=== PATIENT | female | born 1955 | race Asian ===

== ENCOUNTER → 2017-06-12 | Outpatient (CLI) | payer OTHER ==
--- NOTE | 2017-06-12 17:44 | WOMENS IMAGING REPORT ---
EXAM DESCRIPTION: BILAT SCREENING MAMMO W/CAD COMPLETED DATE/TIME: 06/12/2017 4:01 pm REASON FOR STUDY: ROUTINE SCREENING; Z12.31 Z12.31 ENCNTR SCREEN MAMMOGRAM FOR MALIGNANT NEOPLASM O F JIM COMPARISON: 2013 TECHNIQUE: Standard craniocaudal and mediolateral oblique views of each breast recorded using digita l acquisition. LIMITATIONS: None. FINDINGS: No masses, calcifications or architectural distortion. No areas of suspicion. Read with the assistance of CAD. .[facility] - R2 Cenova Version 1.3 .[facility] - R2 Cenova Version 1.3 .[facility] - R2 Cenova Version 2.4 .[facility] [place] - R2 Cenova Version 2.4 .[facility] - R2 Supervisor Baking Version 9.2 IMPRESSION: NORMAL MAMMOGRAM. BIRADS 1. BREAST DENSITY: b. There are scattered areas of fibroglandular density. BIRAD: 1 NEGATIVE RECOMMENDATION: ROUTINE SCREENING Please consider bilateral screening tomosynthesis in May 2018 COMMENT: The patient has been notified of the results by letter per SA requirements. Additional no tification policies are in place for contacting patient with suspicious or incomplete findings. Quality ID #[id number]: The [employer] recommends an annual screening mammogram for women aged 40 years or over. This facility utilizes a reminder system to ensure that all patients receive reminder letters, and/or direct phone calls for appointments. This includes reminders for routine scr eening mammograms, diagnostic mammograms, or other Breast Imaging Interventions when appropriate. Th is patient will be placed in the appropriate reminder system. The [employer] (ACR) has developed recommendations for screening MRI of the breast s in certain patient populations, to be used in conjunction with mammography. Breast MRI surveillanc e may be appropriate for women with more than 20% lifetime risk of developing breast cancer as deter mined by genetic testing, significant family history of the disease, or history of mantle radiation f or Hodgkins Disease. ACR Practice Guidelines 2008. TECHNICAL DOCUMENTATION: FINDING NUMBER: (1) ASSESSMENT: (1) JOB ID: [id number] [employer]- All Rights Reserved
== END ==
LOC: WI 15:47
PROVIDERS: ATTEND Family Medicine
DX: Z12.31 Encounter for screening mammogram for malignant neoplasm of breast (principal)
CPT/HCPCS: 77067; G0202

== ENCOUNTER 2020-07-27 20:09 | Observation (INO) | payer OTHER, BC ==
--- NOTE | 2020-07-27 21:42 | ER Document Report ---
ED Medical Screen (RME) - General Chief Complaint: Palpitations Stated Complaint: HEART RACING,HIGH BP,VOMITING,DIZZY Time Seen by Provider: 07/27/20 21:33 Primary Care Provider: MAXWELL MARIO MD [Primary Care Provider] - Follow up as needed Mode of Arrival: Wheelchair Information source: Patient Notes: 65-year-old female presented to ED for complaint of dizziness palpitation shortness of breath nausea and vomiting. She states it all started when she went shopping. She states she walked into the store she got extremely dizzy told her friends that she had to go because she was too dizzy to go shopping. She states the friend then took her home. She states it was around 3 or 4:00 this afternoon. She states her friend took her home she went inside she sit down she states when she first went and she took her blood pressure it was 181/76. She states she she felt very dizzy then she went to the bathroom and started throwing up. She then went back in and sat back down. She states she states she decided to come to the emergency room because she kept vomiting and then she started coughing. He states that the chest started hurting and the heart was racing. I have greeted and performed a rapid initial assessment of this patient. A comprehensive ED assessment and evaluation of the patient, analysis of test results and completion of medical decision making process will be conducted by an additional ED providers. TRAVEL OUTSIDE OF THE [place] IN LAST 30 DAYS: No - Related Data Allergies/Adverse Reactions: No Known Allergies Allergy (Verified 11/24/13 06:26) Past Medical History - Past Medical History Cardiac Medical History: Reports: Hx Heart Attack, Hx Hypercholesterolemia, Hx Hypertension Past Surgical History: Reports: Hx Cholecystectomy, Hx Hysterectomy - Immunizations Hx Diphtheria, Pertussis, Tetanus Vaccination: Yes - states up to date Physical Exam - Vital signs Vitals: Temp Pulse Resp BP Pulse Ox 98.2 F 102 H 20 164/72 H 93 07/27/20 20:25 07/27/20 20:25 07/27/20 20:25 07/27/20 20:25 07/27/20 20:25 Course - Vital Signs Vital signs: Temp Pulse Resp BP Pulse Ox 98.2 F 102 H 20 164/72 H 93 07/27/20 20:25 07/27/20 20:25 07/27/20 20:25 07/27/20 20:25 07/27/20 20:25 Doctor's Discharge - Discharge Referrals: MAXWELL MARIO MD [Primary Care Provider] - Follow up as needed
--- NOTE | 2020-07-27 22:23 | RADIOLOGY REPORT (SQ) ---
CHEST X-RAY 2 view on 07/27/2020 at 9:46 PM CLINICAL INDICATION: Chest pain, shortness of breath COMPARISON: 11/24/2013 FINDINGS: There is slight elevation of the right hemidiaphragm. Heart is upper limits normal for size. Hilar and mediastinal contours are within normal limits. The lungs are clear. Mild degenerative changes are noted in the spine. IMPRESSION: No significant change and no acute disease.
[2020-07-27 23:00] LABS: ALBUMIN 4.6 g/dL (3.5-5.0); ALKALINE PHOSPHATASE 72 U/L (38-126); ANION GAP 10 (5-19); ASPARTATE AMINO TRANSFERASE 37 U/L (14-36); BILIRUBIN,TOTAL 0.6 mg/dL (0.2-1.3); BLOOD UREA NITROGEN 13 mg/dL (7-20); CALCIUM 10.1 mg/dL (8.4-10.2); CARBON DIOXIDE 26 mmol/L (22-30); CHLORIDE 102 mmol/L (98-107); GLUCOSE 137 mg/dL (75-110); POTASSIUM 4.4 mmol/L (3.6-5.0); TOTAL PROTEIN 8.5 g/dL (6.3-8.2)
[2020-07-27 23:02] LABS: ABSOLUTE BASOPHILS # (AUTO) 0.1 10^3/uL (0.0-0.2); ABSOLUTE LYMPHOCYTES (AUTO) 1.3 10^3/uL (0.5-4.7); ABSOLUTE MONOCYTES (AUTO) 0.2 10^3/uL (0.1-1.4); ABSOLUTE NEUT (AUTO) 5.5 10^3/uL (1.7-8.2); BASOPHILS % (AUTO) 1.2 % (0-2); EOSINOPHILS % (AUTO) 0.6 % (0-6); HEMATOCRIT 41.4 % (36.0-47.0); HEMOGLOBIN 14.3 g/dL (12.0-15.5); LYMPHOCYTES % (AUTO) 18.5 % (13-45); MEAN CORPUSCULAR HEMOGLOBIN 31.8 pg (27.0-33.4); MEAN CORPUSCULAR HGB CONC 34.6 g/dL (32.0-36.0); MEAN CORPUSCULAR VOLUME 92 fl (80-97); MONOCYTES % (AUTO) 3.4 % (3-13); PLATELET COUNT 210 10^3/uL (150-450); RED CELL DISTRIBUTION WIDTH 13.1 % (11.5-14.0); SEGMENTED NEUTROPHILS % (AUTO) 76.3 % (42-78); TOTAL CELLS COUNTED % (AUTO) 100 %; WHITE BLOOD COUNT 7.2 10^3/uL (4.0-10.5)
[2020-07-27 23:16] LABS: CREATINE KINASE 137 U/L (30-135)
[2020-07-27] MEDS ORDERED: MECLIZINE HCL 25 MG TABLET PO ONE (23:35)
[2020-07-27] MEDS ORDERED: NORMAL SALINE 1000 ML 1,000 ML IV ONE (23:37)
[2020-07-27] MEDS ORDERED: ONDANSETRON HCL INJ/PF 4 MG/2 ML SDV IV ONE (23:37)
[2020-07-27] MEDS ORDERED: ASPIRIN 81 MG TABLET, CHEWABLE PO ONE (23:42)
[2020-07-27] MEDS ORDERED: METOPROLOL SUCCINATE 25 MG TAB.SR.24H PO ONE (23:42)
--- NOTE | 2020-07-27 23:52 | ER Document Report ---
ED General - General Chief Complaint: Chest Pain Stated Complaint: HEART RACING,HIGH BP,VOMITING,DIZZY Time Seen by Provider: 07/27/20 21:33 Primary Care Provider: MAXWELL MARIO MD [Primary Care Provider] - Follow up as needed Mode of Arrival: Wheelchair Notes: 65-year-old female history of hypertension, hyperlipidemia, CAD presents with intermittent left chest pain she describes as left-sided tightness sometimes radiating to right chest associated with shortness of breath that comes on without any known aggravating factors but patient also does endorse some exercise intolerance with dyspnea on exertion while gardening over the past several weeks. Patient also coming in with vertigo which is intermittent and aggravated by moving her head and looking to the right that she has had in the past but was not able to keep down the meclizine as her vertigo was so bad today that she is vomited several times. Patient denies any abdominal pain, headache, neck pain or stiffness, fever, recent illness, cough, lower extremity edema, recent travel/trauma/surgery/immobilization, DVT/PE/hypercoagulability history in self or family, malignancy history, exogenous estrogen therapy, prior cardiac work-up (says she was told that she had heart attack in the past but never had further work-up and has seen a cloth dyer once in the distant past) TRAVEL OUTSIDE OF THE [place] IN LAST 30 DAYS: No - Related Data Allergies/Adverse Reactions: No Known Allergies Allergy (Verified 07/27/20 23:22) Past Medical History - General Information source: Patient - Social History Smoking Status: Never Smoker Chew tobacco use (# tins/day): No Frequency of alcohol use: None Drug Abuse: None Family History: Other Patient has homicidal ideation: No - Past Medical History Cardiac Medical History: Reports: Hx Heart Attack, Hx Hypercholesterolemia, Hx Hypertension Past Surgical History: Reports: Hx Cholecystectomy, Hx Hysterectomy - Immunizations Hx Diphtheria, Pertussis, Tetanus Vaccination: Yes - states up to date Review of Systems - Review of Systems Notes: REVIEW OF SYSTEMS: CONSTITUTIONAL : Denies fever, chills, or sweats. EENT: Denies recent cold/sinus symptoms, denies throat pain CARDIOVASCULAR: +chest pain, +RUFUS RESPIRATORY: Denies cough, +shortness of breath. GASTROINTESTINAL: Denies abdominal pain, +nausea/vomiting. GENITOURINARY: Denies difficulty urinating, painful urination. FEMALE GENITOURINARY: Denies abnormal vaginal bleeding, vaginal discharge. MUSCULOSKELETAL: Denies neck pain, back pain. SKIN: Denies rash or skin lesions. HEMATOLOGIC : Denies easy bruising or bleeding. LYMPHATIC: Denies swollen, enlarged glands. NEUROLOGICAL: Denies headache, denies change in gait. PSYCHIATRIC: Denies anxiety or stress or depression. Physical Exam - Vital signs Vitals: Temp Pulse Resp BP Pulse Ox 98.2 F 102 H 20 164/72 H 93 07/27/20 20:25 07/27/20 20:25 07/27/20 20:25 07/27/20 20:25 07/27/20 20:25 - Notes Notes: PHYSICAL EXAMINATION: GENERAL: Uncomfortable but nontoxic appearing middle-aged woman appearing younger than stated age lying in stretcher in no acute distress HEAD: Atraumatic, normocephalic. EYES: Pupils equal round and appropriate constriction, sclera anicteric, conjunctiva are normal. ENT: nares patent, moist mucous membranes. NECK: Normal range of motion, supple without lymphadenopathy LUNGS: Breath sounds clear to auscultation bilaterally and equal. No wheezes rales or rhonchi. Normal respiratory effort and rate, speaking in full sentences, managing secretions, no tripoding, no accessory muscle use HEART: Mildly tachycardic regular rhythm without murmurs, rubs, or gallops ABDOMEN: Soft, nontender, no guarding, no masses, no CVAT EXTREMITIES: Normal range of motion, no pitting or edema. No cyanosis. NEUROLOGICAL: Awake, alert, conversing appropriately, moves all extremities spontaneously. Cranial nerves II through XII intact bilaterally, normal [id number] bilaterally, 5-5 strength in all extremities, normal sensation in all extremities, head impulse abnormal on hints exam and bilateral right beating nystagmus that exacerbated vertigo, normal test of skew, gait not assessed as patient became very vertiginous during HINTS exam PSYCH: Normal mood, normal affect. SKIN: Warm, Dry, normal turgor, healed scars on lower extremities without any edema or redness Course - Re-evaluation Re-evalutation: 07/28/20 00:00 Patient with history of CAD, hypertension, hyperlipidemia presents with chest pain with concern for possible ACS, patient currently without chest pain, no signs of acute ischemia on her EKG and initial troponin negative. Given patient's concerning story, age, and risk factors unable to rule out ACS in ED and have presented patient to hospitalist for ACS rule out observation. Patient's vertigo consistent with peripheral vertigo. Intermittent, has history of similar vertigo, and HINTS exam consistent with benign etiology. Patient mildly tachycardic but unable to take metoprolol p.o. secondary to vomiting earlier today. Given age and tachycardia unable to rule out PE with PERC so ordered D-dimer, patient appropriate for D-dimer rule out as she has low pretest probability of PE with low Wells score. Discussed patient with Dr. Zavala. 07/28/20 01:21 Patient accepted to telemetry observation by Dr. Zavala - Vital Signs Vital signs: Temp Pulse Resp BP Pulse Ox 98.2 F 102 H 20 164/72 H 93 07/27/20 23:20 07/27/20 20:25 07/27/20 20:25 07/27/20 20:25 07/27/20 20:25 - Laboratory Result Diagrams: 07/27/20 22:10 07/27/20 22:10 Laboratory results interpreted by me: 07/27/20 22:10 Glucose 137 H AST 37 H Creatine Kinase 137 H Total Protein 8.5 H - EKG Interpretation by Me Additional EKG results interpreted by me: 07/28/20 00:03 Sinus rhythm, no significant ST elevations or depressions, no significant T wave abnormalities, QTc 455 Discharge - Discharge Clinical Impression: Vertigo Chest pain Qualifiers: Chest pain type: precordial pain Qualified Code(s): R07.2 - Precordial pain Disposition: ADMITTED OBSERVATION Admitting Provider: Lucas Unit Admitted: Telemetry Referrals: MAXWELL MARIO MD [Primary Care Provider] - Follow up as needed
[2020-07-28] MEDS: DIAZEPAM INJ 10 MG/2 ML DISP.SYRIN IV ONE ×2 (00:56→01:02)
[2020-07-28] MEDS ORDERED: RINGERS SOLUTION,LACTATED 1,000 ML IV PRN (01:01)
[2020-07-28] MEDS ORDERED: ONDANSETRON HCL INJ/PF 4 MG/2 ML SDV IV PRN (01:01)
[2020-07-28] MEDS ORDERED: NITROGLYCERIN 0.4 MG/TAB 25 TAB/BOTTLE SL PRN (01:10)
--- NOTE | 2020-07-28 01:14 | PDOC H&P ---
History of Present Illness Admission Date/PCP: MAXWELL MARIO MD Patient complains of: Chest pain. Nausea and vomiting History of Present Illness: DARRION KIM is a 65 year old female with no significant past medical history who presents to the ED after she had 4 episodes of vomiting of ingested matter and feeling sick to her stomach for few hours before presentation. Patient also reports that she felt dizzy when she tried to get up from a sitting position but denies any fall or loss of consciousness. She also endorses on and off left-sided chest pain which she characterizes as aching for the past few months. She states that the pain has been progressively getting worse and she has not noticed any association with exertion. She denies any cough, shortness of breath, diaphoretic, palpitation, weakness of extremities. Past Medical History Cardiac Medical History: Reports: Myocardial Infarction, Hyperlipidema, Hypertension Past Surgical History Past Surgical History: Reports: Cholecystectomy, Hysterectomy Social History Information Source: Patient Smoking Status: Never Smoker Electronic Cigarette use?: No Hx Recreational Drug Use: No Drugs: None - Advance Directive Resuscitation Status: Full Code Family History Family History: Other Parental Family History Reviewed: Yes Children Family History Reviewed: Yes Sibling(s) Family History Reviewed.: Yes Medication/Allergy Home Medications: Aspirin [Ecotrin 81 mg EC Tablet] 81 mg PO DAILY 07/28/20 Metoprolol Tartrate [Lopressor 50 mg Tablet] 50 mg PO Q12 07/28/20 Allergies/Adverse Reactions: No Known Allergies Allergy (Verified 07/27/20 23:22) Review of Systems Constitutional: PRESENT: as per HPI Eyes: ABSENT: visual disturbances Ears: ABSENT: hearing changes Nose, Mouth, and Throat: ABSENT: as per HPI, headache(s), mouth pain, sore throat, vertigo, other Cardiovascular: PRESENT: as per HPI Respiratory: ABSENT: cough, hemoptysis Gastrointestinal: PRESENT: as per HPI Genitourinary: ABSENT: dysuria, hematuria Musculoskeletal: ABSENT: joint swelling Integumentary: ABSENT: rash, wounds Neurological: ABSENT: abnormal gait, abnormal speech, confusion, dizziness, focal weakness, syncope Psychiatric: ABSENT: anxiety, depression, homidical ideation, suicidal ideation Endocrine: ABSENT: cold intolerance, heat intolerance, polydipsia, polyuria Hematologic/Lymphatic: ABSENT: easy bleeding, easy bruising Physical Exam Vital Signs: Temp Pulse Resp BP Pulse Ox 98.2 F 102 H 20 164/72 H 93 07/27/20 23:20 07/27/20 20:25 07/27/20 20:25 07/27/20 20:25 07/27/20 20:25 Intake & Output 07/26/20 07/27/20 07/28/20 06:59 06:59 06:59 Weight 86.6 kg Additional comments: GENERAL APPEARANCE: Alert and oriented x3, no acute distress HEENT: Normocephalic and atraumatic. No scleral icterus. Dry oral mucosa NECK: Supple. No lymphadenopathy or tenderness. No carotid bruit. No JVD CHEST: Symmetric. Heart reproducible pain on the left costochondritic area LUNGS: Clear with good air entry bilaterally. HEART: Regular rate and rhythm with normal S1 and S2. No murmurs, gallops, or rubs. ABDOMEN: Flat, soft, active bowel sounds, no direct or rebound tenderness. No organomegaly detected. No CVA tenderness EXTREMITIES: No cyanosis, clubbing, or edema. MUSCULOSKELETAL: No deformity, atrophy or swelling noted PSYCHIATRIC: The patient is awake, alert, and oriented x3. Recent and remote memory is intact. Appropriate mood and affect. SKIN: Warm, dry, and well perfused. No lesions or rashes are noted. NEUROLOGIC: No focal sensory or motor deficits are noted. Results Laboratory Results: 07/27/20 22:10 07/27/20 22:10 07/27/20 07/27/20 22:10 22:10 WBC 7.2 RBC 4.50 Hgb 14.3 Hct 41.4 MCV 92 MCH 31.8 MCHC 34.6 RDW 13.1 Plt Count 210 Seg Neutrophils % 76.3 Sodium 137.8 Potassium 4.4 Chloride 102 Carbon Dioxide 26 Anion Gap 10 BUN 13 Creatinine 0.66 Est GFR ( Amer) > 60 Glucose 137 H Calcium 10.1 Magnesium 2.2 Total Bilirubin 0.6 AST 37 H Alkaline Phosphatase 72 Total Protein 8.5 H Albumin 4.6 07/27/20 07/27/20 22:10 22:10 Creatine Kinase 137 H Troponin I < 0.012 Impressions: Chest X-Ray 07/27/20 21:34 IMPRESSION: No significant change and no acute disease. Assessment and Plan - Diagnosis (1) Chest pain Qualifiers: Chest pain type: precordial pain Qualified Code(s): R07.2 - Precordial pain Is this a current diagnosis for this admission?: Yes Plan: Chest pain is reproducible on palpation Cardiac enzymes x2 have been negative so far EKG shows normal sinus rhythm with no ST-T wave changes Continue aspirin, metoprolol and atorvastatin Nitroglycerin as needed for chest pain Will trend cardiac enzyme in 6 hours time Productive cough outpatient (2) Volume depletion Is this a current diagnosis for this admission?: Yes Plan: Patient presents with repeated nausea and vomiting Has been hydrated at the ER Will closely monitor vitals and volume status (3) Nausea and vomiting Is this a current diagnosis for this admission?: Yes Plan: Patient reports interval improvement since arrival to ER Zofran 4 mg every 8 hourly as needed - Time Time Spent with patient: 35 or more minutes Total Critical Time (Minutes): 35 Medications reviewed and adjusted accordingly: Yes Anticipated Discharge Disposition: Home, Self Care Anticipated Discharge Timeframe: within 48 hours - Inpatient Certification Medical Necessity: Need Close Monitoring Due to Risk of Patient Decompensation, Need For IV Fluids, Need For Continuous Telemetry Monitoring Post Hospital Care: D/C or Transfer Summary
[2020-07-28] MEDS ORDERED: ACETAMINOPHEN 325 MG TABLET ONE (03:13)
[2020-07-28] MEDS ORDERED: ACETAMINOPHEN 325 MG TABLET PO PRN (03:17)
--- NOTE | 2020-07-28 09:43 | EKG REPORT ---
SEVERITY:- NORMAL ECG - SINUS RHYTHM : Confirmed by: Wes Luz MD 28-Jul-2020 09:43:15
[2020-07-28] MEDS ORDERED: FAMOTIDINE 20 MG TABLET PO SCH (10:00)
[2020-07-28] MEDS ORDERED: ASPIRIN 81 MG TABLET, CHEWABLE PO SCH (10:00)
[2020-07-28] MEDS ORDERED: ENOXAPARIN SODIUM INJ 40 MG/0.4 ML DISP.SYRIN SUBCUT SCH (10:00)
[2020-07-28 10:13] LABS: ANION GAP 9 (5-19); BLOOD UREA NITROGEN 11 mg/dL (7-20); CALCIUM 9.5 mg/dL (8.4-10.2); CARBON DIOXIDE 27 mmol/L (22-30); CHLORIDE 105 mmol/L (98-107); CHOLESTEROL 219.02 mg/dL (0-200); GLUCOSE 147 mg/dL (75-110); POTASSIUM 4.2 mmol/L (3.6-5.0)
[2020-07-28 10:26] LABS: TRIGLYCERIDES 72 mg/dL (<150)
[2020-07-28 10:36] LABS: DIRECT LDL 134 mg/dL (<100)
[2020-07-28 12:37] VITALS: BP 142/61
--- NOTE | 2020-07-28 13:26 | PDOC DISCHARGE SUMMARY ---
Impression - Admit/DC Date/PCP Admission Date/Primary Care Provider: 07/28/20 01:31 MAXWELL MARIO MD Discharge Date: 07/28/20 - Discharge Diagnosis (1) Chest pain Is this a current diagnosis for this admission?: Yes (2) BPPV (benign paroxysmal positional vertigo) Is this a current diagnosis for this admission?: Yes (3) Nausea and vomiting Is this a current diagnosis for this admission?: Yes (4) Volume depletion Is this a current diagnosis for this admission?: Yes (5) Hypertension Is this a current diagnosis for this admission?: Yes - Additional Information Resuscitation Status: Full Code Discharge Activity: Activity As Tolerated Referrals: MAXWELL MARIO MD [Primary Care Provider] - 07/28/20 12:16 pm (07/28 @ 1216. NO ANSWER AT PCP OFFICE A VM WAS LEFT FOR PCP TO CALL PATIENT WITH A HOSPITAL FOLLOW UP APPT.) Prescriptions: Meclizine HCl [Antivert 25 mg Tablet] 25 mg PO TIDP PRN #21 tablet PRN Reason: Atorvastatin Calcium [Lipitor 20 mg Tablet] 20 mg PO QHS #30 tablet Metoprolol Tartrate [Lopressor 50 mg Tablet] 50 mg PO Q12H #60 tablet Home Medications: Aspirin [Ecotrin 81 mg EC Tablet] 81 mg PO DAILY 07/28/20 Atorvastatin Calcium [Lipitor 20 mg Tablet] 20 mg PO QHS #30 tablet 07/28/20 Meclizine HCl [Antivert 25 mg Tablet] 25 mg PO TIDP PRN #21 tablet 07/28/20 Metoprolol Tartrate [Lopressor 50 mg Tablet] 50 mg PO Q12H #60 tablet 07/28/20 History of Present Illiness History of Present Illness: According to admitting provider: DARRION KIM is a 65 year old female with no significant past medical history who presents to the ED after she had 4 episodes of vomiting of ingested matter and feeling sick to her stomach for few hours before presentation. Patient also reports that she felt dizzy when she tried to get up from a sitting position but denies any fall or loss of consciousness. She also endorses on and off left-sided chest pain which she characterizes as aching for the past few months. She states that the pain has been progressively getting worse and she has not noticed any association with exertion. She denies any cough, shortness of breath, diaphoretic, palpitation, weakness of extremities. Hospital Course Hospital Course: Patient was admitted to the hospital for evaluation of chest pain, nausea, vomiting and vertigo. Blood work was obtained which was largely unremarkable. Troponin was trended 3 times and were all negative. Patient's EKG is normal with no evidence of ischemic changes. Chest x-ray also unremarkable. Patient states her chest pain was accompanied by some paresthesia in the left arm. She does have history of chronic neck pain. I do wonder if part of this experience could have been referred pain sensation from her cervical radiculopathy. However Spurling's test is negative. She has been referred to follow-up with her primary care provider for further care. Chest pain is currently resolved. Patient also experiencing vertigo. Performed Walcott-Hallpike maneuver on patient which was positive with very evident nystagmus when facing right. She did not tolerate attempt at Balwinder's maneuver very well so it was not concluded. Have instructed patient to look up Balwinder maneuver technique and to do this at home. I will discharge her with a prescription for meclizine to help with the nausea from her vertigo. She will be set up with outpatient PT for vestibular therapy. Give patient prescription for renewal of her metoprolol which she takes for hypertension. Patient will be set up with a follow-up PCP appointment. Physical Exam Vital Signs: Temp Pulse Resp BP Pulse Ox 97.9 F 91 18 142/61 H 99 07/28/20 12:32 07/28/20 12:32 07/28/20 12:32 07/28/20 12:32 07/28/20 12:32 Intake & Output 07/27/20 07/28/20 07/29/20 06:59 06:59 06:59 Intake Total 1000 1240 Balance 1000 1240 Weight 86.6 kg General appearance: PRESENT: no acute distress, cooperative Neck exam: ABSENT: JVD Respiratory exam: PRESENT: clear to auscultation damien, unlabored Cardiovascular exam: PRESENT: +S1, +S2. ABSENT: diastolic murmur, systolic murmur, tachycardia GI/Abdominal exam: PRESENT: soft. ABSENT: tenderness Neurological exam: PRESENT: alert, awake, oriented to person, oriented to place, oriented to time Psychiatric exam: ABSENT: agitated, anxious Results Laboratory Results: WBC 7.2 10^3/uL (4.0-10.5) 07/27/20 22:10 RBC 4.50 10^6/uL (3.72-5.28) 07/27/20 22:10 Hgb 14.3 g/dL (12.0-15.5) 07/27/20 22:10 Hct 41.4 % (36.0-47.0) 07/27/20 22:10 MCV 92 fl (80-97) 07/27/20 22:10 MCH 31.8 pg (27.0-33.4) 07/27/20 22:10 MCHC 34.6 g/dL (32.0-36.0) 07/27/20 22:10 RDW 13.1 % (11.5-14.0) 07/27/20 22:10 Plt Count 210 10^3/uL (150-450) 07/27/20 22:10 Lymph % (Auto) 18.5 % (13-45) 07/27/20 22:10 Beauregard % (Auto) 3.4 % (3-13) 07/27/20 22:10 Eos % (Auto) 0.6 % (0-6) 07/27/20 22:10 Baso % (Auto) 1.2 % (0-2) 07/27/20 22:10 Absolute Neuts (auto) 5.5 10^3/uL (1.7-8.2) 07/27/20 22:10 Absolute Lymphs (auto) 1.3 10^3/uL (0.5-4.7) 07/27/20 22:10 Absolute Monos (auto) 0.2 10^3/uL (0.1-1.4) 07/27/20 22:10 Absolute Eos (auto) 0.0 10^3/uL (0.0-0.6) 07/27/20 22:10 Absolute Basos (auto) 0.1 10^3/uL (0.0-0.2) 07/27/20 22:10 Seg Neutrophils % 76.3 % (42-78) 07/27/20 22:10 D-Dimer 0.64 ug/mL (0.00-0.50) H 07/28/20 01:02 Sodium 141.4 mmol/L (137-145) 07/28/20 08:50 Potassium 4.2 mmol/L (3.6-5.0) 07/28/20 08:50 Chloride 105 mmol/L (98-107) 07/28/20 08:50 Carbon Dioxide 27 mmol/L (22-30) 07/28/20 08:50 Anion Gap 9 (5-19) 07/28/20 08:50 BUN 11 mg/dL (7-20) 07/28/20 08:50 Creatinine 0.69 mg/dL (0.52-1.25) 07/28/20 08:50 Est GFR ( Amer) > 60 (>60) 07/28/20 08:50 Est GFR (MDRD) Non-Af > 60 (>60) 07/28/20 08:50 Glucose 147 mg/dL (75-110) H 07/28/20 08:50 Calcium 9.5 mg/dL (8.4-10.2) 07/28/20 08:50 Magnesium 2.2 mg/dL (1.6-2.3) 07/28/20 08:50 Total Bilirubin 0.6 mg/dL (0.2-1.3) 07/27/20 22:10 Direct Bilirubin 0.0 mg/dL (0.0-0.4) 07/27/20 22:10 Neonat Total Bilirubin Not Reportable 07/27/20 22:10 Neonat Direct Bilirubin Not Reportable 07/27/20 22:10 Neonat Indirect Bili Not Reportable 07/27/20 22:10 AST 37 U/L (14-36) H 07/27/20 22:10 ALT 35 U/L (<35) 07/27/20 22:10 Alkaline Phosphatase 72 U/L (38-126) 07/27/20 22:10 Creatine Kinase 137 U/L (30-135) H 07/27/20 22:10 Troponin I < 0.012 ng/mL 07/28/20 08:50 Total Protein 8.5 g/dL (6.3-8.2) H 07/27/20 22:10 Albumin 4.6 g/dL (3.5-5.0) 07/27/20 22:10 Triglycerides 72 mg/dL (<150) 07/28/20 08:50 Cholesterol 219.02 mg/dL (0-200) H 07/28/20 08:50 LDL Cholesterol Direct 134 mg/dL (<100) H 07/28/20 08:50 VLDL Cholesterol 14.0 mg/dL (10-31) 07/28/20 08:50 HDL Cholesterol 60 mg/dL (>40) 07/28/20 08:50 07/27/20 07/28/20 07/28/20 22:10 01:02 08:50 Troponin I < 0.012 < 0.012 < 0.012 Impressions: Chest X-Ray 07/27/20 21:34 IMPRESSION: No significant change and no acute disease. Plan Time Spent: Greater than 30 Minutes Stroke Is this a Stroke Patient?: No Acute Heart Failure Is this a Heart Failure Patient?: No
[2020-07-28] MEDS ORDERED: ATORVASTATIN CALCIUM 40 MG TABLET PO SCH (22:00)
== END 2020-07-28 14:25 | disposition home or self-care (01) ==
LOC: ER 20:09 → EH 07-28 01:31 → 4N 07-28 03:02
PROVIDERS: ADMIT Student in an Organized Health Care Education/Training Program; ATTEND Internal Medicine
DX: R07.2 Precordial pain (principal); H81.10 Benign paroxysmal vertigo, unspecified ear; R11.2 Nausea with vomiting, unspecified; E86.9 Volume depletion, unspecified; I10 Essential (primary) hypertension; R05 Cough; R06.09 Other forms of dyspnea; R00.0 Tachycardia, unspecified; R20.2 Paresthesia of skin; Z79.82 Long term (current) use of aspirin; M54.12 Radiculopathy, cervical region; E78.5 Hyperlipidemia, unspecified; Z90.49 Acquired absence of other specified parts of digestive tract; Z79.899 Other long term (current) drug therapy; Z90.710 Acquired absence of both cervix and uterus
CPT/HCPCS: 93005; 99285; 96361; 96374; 36415 ×2; 82550; 83735 ×2; 85025; 80048; 80053; 84484 ×2; 85379; 80061; 71046; 93010; G0378; J1650; J2405; J7030; J7120; J3360

== ENCOUNTER → 2020-10-17 | Outpatient (CLI) | payer BC, OTHER ==
--- NOTE | 2020-10-17 12:38 | RADIOLOGY REPORT (SQ) ---
EXAM DESCRIPTION: RIBS LEFT W/PA CHEST IMAGES COMPLETED DATE/TIME: 10/17/2020 11:48 am REASON FOR STUDY: L CHEST WALL PAIN/TENDERNESS M94.0 CHONDROCOSTAL JUNCTION SYNDROME TIETZE COMPARISON: None. TECHNIQUE: Frontal view of the chest and additional views of the left ribs acquired. NUMBER OF VIEWS: Three views LIMITATIONS: None. FINDINGS: FRONTAL CXR: No pneumothorax. No pleural effusion. No atelectasis or infiltrates. RIBS: No displaced rib fractures. No lytic or blastic bony lesions. OTHER: No other significant finding. IMPRESSION: NO PNEUMOTHORAX. NO DISPLACED RIB FRACTURES. COMMENT: SITE OF TRAUMA/COMPLAINT MARKED/STAMP COMPLETED: Yes TECHNICAL DOCUMENTATION: JOB ID: [id number] 2010 [employer]- All Rights Reserved Reading location - IP/workstation name: [email or web address]
== END ==
LOC: RAD 11:30
PROVIDERS: ATTEND Internal Medicine
DX: M94.0 Chondrocostal junction syndrome [Tietze] (principal)

== ENCOUNTER → 2020-10-19 | Outpatient (CLI) | payer BC, OTHER ==
--- NOTE | 2020-10-19 15:48 | WOMENS IMAGING REPORT ---
EXAM DESCRIPTION: 3D SCREENING MAMMO BILAT IMAGES COMPLETED DATE/TIME: 10/19/2020 2:34 pm REASON FOR STUDY: Z12.31 ENCOUNTER FOR SCREENING MAMMOGRAM FOR MALIGNANT NEOPLASM OF BREAST Z12.31 ENCNTR SCREEN MAMMOGRAM FOR MALIGNANT NEOPLASM OF JIM COMPARISON: 2013, 2016 EXAM PARAMETERS: Views: Standard craniocaudal and mediolateral oblique views of each breast recorded using digital acquisition and breast tomosynthesis. Read with the assistance of CAD. .[facility] - [employer] Version 9.2 LIMITATIONS: None. FINDINGS: No suspicious masses, suspicious calcifications or architectural distortion. No areas of c oncern. IMPRESSION: NEGATIVE MAMMOGRAM. BIRADS 1. BREAST DENSITY: b. There are scattered areas of fibroglandular density. BIRAD: ASSESSMENT: 1 NEGATIVE RECOMMENDATION: ROUTINE SCREENING Please continue yearly bilateral screening mammography/tomosynthesis in September 2021 COMMENT: The patient has been notified of the results by letter per MQSA requirements. Additional no tification policies are in place for contacting patient with suspicious or incomplete findings. Quality ID #[id number]: The [employer] recommends an annual screening mammogram for women aged 40 years or over. This facility utilizes a reminder system to ensure that all patients receive reminder letters, and/or direct phone calls for appointments. This includes reminders for routine scr eening mammograms, diagnostic mammograms, or other Breast Imaging Interventions when appropriate. Th is patient will be placed in the appropriate reminder system. TECHNICAL DOCUMENTATION: FINDING NUMBER: (1) ASSESSMENT: (1) JOB ID: [id number] 2010 [employer]- All Rights Reserved Reading location - IP/workstation name: [id number]
== END ==
LOC: WI 13:54
PROVIDERS: ATTEND Internal Medicine
DX: Z12.31 Encounter for screening mammogram for malignant neoplasm of breast (principal)
CPT/HCPCS: 77063; 77067